=== PATIENT | male | born 1970 | race Caucasian/White ===

== ENCOUNTER 2021-09-26 11:51 | Emergency (ER) | payer OTHER, SELFPAY ==
[2021-09-26 12:04] VITALS: BP 138/98; PULSE 94; RESP 14; TEMP 37.1; O2SAT 99
--- NOTE | 2021-09-26 13:01 | ED.GENADULT ---
HPI - General Adult General Chief complaint: Upper Respiratory Infection Stated complaint: cough Source: patient Mode of arrival: ambulatory Limitations: no limitations History of Present Illness HPI narrative: Patient presents for evaluation of sick symptoms for the last 2 days. He states that he generally was not feeling well 2 days ago. Yesterday he developed chills, headache, body aches, nonproductive cough. He continues to have a cough but states other symptoms have resolved. He denies any fever, shortness of breath, chest pain, nausea, vomiting, diarrhea. He states that his coworker contacted him and told him that he tested positive for COVID. Patient does not smoke tobacco. He has had COVID in the past. She did not receive COVID vaccinations. No additional complaints or concerns Related Data Home Medications Medication Instructions Recorded Confirmed albuterol sulfate 90 mcg/actuation 2 inh inhalation Q4H PRN sob 09/26/21 09/26/21 aerosol inhaler losartan 100 mg tablet 1 tablet PO DAILY 09/26/21 09/26/21 Allergies Allergy/AdvReac Type Severity Reaction Status Date / Time acetaminophen Allergy Severe passing out Verified 09/26/21 12:02 hydrocodone Allergy Severe passing out Verified 09/26/21 12:02 oxycodone Allergy Severe passing out Verified 09/26/21 12:02 Review of Systems Review of Systems: CONSTITUTIONAL: Reports recent chills, now resolved. Denies fever or sweats. EYES: Denies visual changes, redness, or discharge. ENT: Denies rhinorrhea, congestion, sore throat, or otalgia. CARDIOVASCULAR: Denies chest pain, palpitations, or edema. RESPIRATORY: Reports cough. Denies dyspnea. GASTROINTESTINAL: Denies abdominal pain, nausea, vomiting, or diarrhea. GENITOURINARY: Denies dysuria or hematuria. SKIN: Denies rash or itching. MUSCULOSKELETAL: Reports recent body aches, now resolved. NEUROLOGIC: Reports recent headache, now resolved. Denies umbness, dizziness, or weakness. PSYCHIATRIC: Denies anxiety or depression. [facility] Past Medical History Medical History Bronchitis Surgical History Surgical History History of shoulder surgery Family History Family History Mother Cancer Social History Social History Smoking status: Never smoker Alcohol intake: current Alcohol use details: social Substance use: never Additional living arrangements comments: lives with girlfriend Gender identity (if verbalized by the patient): Male Sexual Orientation (if Verbalized by the Patient): Straight or Heterosexual Spiritual care concerns: No Exam Narrative: GENERAL: Well-appearing, well-nourished, and in no acute distress. HEAD: Normocephalic, atraumatic. EYES: PERRLA and EOMI. ENT: Nares clear, no rhinorrhea or epistaxis. Mucous membranes moist. Oropharynx without tonsillar hypertrophy exudate or other lesions. Bilateral TMs pearly aslter nonbulging NECK: Supple. No adenopathy or masses. No carotid bruits or JVD CHEST: Clear to auscultation. Cough present on exam. No respiratory distress. No wheezes rales or rhonchi HEART: Regular rate and rhythm. No murmur heard. Normal peripheral pulses. ABDOMEN: Soft, nontender, nondistended, normal active bowel sounds. EXTREMITIES: Normal range of motion. No edema. SKIN: Warm, dry, no rash. NEURO: No focal deficits. Alert and oriented x3. PSYCH: Normal mood and affect. Course Course Emergency Course: This is a 50-year-old male who present with complaints of sick symptoms after recent COVID exposure. COVID was positive. Will discharge with Paxlovid. Follow-up outpatient for further evaluation and treatment. Go to the ER for declining condition. Patient agreed with plan of care. Level of Care: Express Care V
== END 2021-09-26 13:05 | disposition home or self-care (01) ==
PROVIDERS: Emergency Provider Nurse Practitioner; PCP Internal Medicine
DX: U07.1 COVID-19 (principal)
CPT/HCPCS: 87426; 99213; C9803; G0463

== ENCOUNTER 2024-02-03 12:12 | Emergency (ER) | payer OTHER, SELFPAY ==
[2024-02-03 12:18] VITALS: BP 124/88; PULSE 98; RESP 18; TEMP 36.9; O2SAT 100
--- NOTE | 2024-02-03 12:26 | ED_ITS ---
HPI - General Adult General Chief complaint: Upper Respiratory Infection Stated complaint: poss bronchitis History of Present Illness HPI narrative: Patient presents requesting a refill on his inhaler. Patient states he has appointment to see his PCP in 2 weeks but has run out of his inhalers. No shortness of breath no chest pain. Patient states he does have a productive cough at times denies any fever body aches. Related Data Home Medications Medication Instructions Recorded Confirmed albuterol sulfate 90 mcg/actuation 2 inh inhalation Q4H PRN sob 09/26/21 09/26/21 aerosol inhaler losartan 100 mg tablet 1 tablet PO DAILY 09/26/21 09/26/21 Allergies Allergy/AdvReac Type Severity Reaction Status Date / Time acetaminophen Allergy Severe passing out Verified 09/26/21 12:02 hydrocodone Allergy Severe passing out Verified 09/26/21 12:02 oxycodone Allergy Severe passing out Verified 09/26/21 12:02 Review of Systems Review of Systems: CONSTITUTIONAL: Denies chills, or sweats. Reports fever and generalized body aches EYES: Denies visual changes, redness, or discharge. ENT: Denies otalgia. Reports nasal congestion runny nose and sore throat CARDIOVASCULAR: Denies chest pain, palpitations, or edema. RESPIRATORY: Denies dyspnea. Reports occasional cough GASTROINTESTINAL: Denies abdominal pain, nausea, vomiting, or diarrhea. GENITOURINARY: Denies dysuria or hematuria. SKIN: Denies rash or itching. MUSCULOSKELETAL: Denies back pain, joint pain, or myalgia. Reports generalized body aches NEUROLOGIC: Denies headache, numbness, or weakness. PSYCHIATRIC: Denies anxiety or depression. [facility] Past Medical History Medical History (Updated 02/03/24 @ 12:28 by LOKESH Wagner) Bronchitis Surgical History Surgical History History of shoulder surgery Family History Family History Mother Cancer Social History Social History Smoking status: Never smoker Alcohol intake: current Alcohol use details: social Substance use: never Additional living arrangements comments: lives with girlfriend Gender identity (if verbalized by the patient): Male Sexual Orientation (if Verbalized by the Patient): Straight or Heterosexual Spiritual care concerns: No Exam Narrative: The patient is a well-developed, well-nourished in no acute distress. SKIN: Skin is warm and dry without erythema, swelling or exudate. There is good turgor. No tenting. HEAD: Atraumatic. Normocephalic. No temporal or scalp tenderness. EYES: Moist and bright. Sclera and conjunctivae normal. No discharge. PERRLA. Extraocular motions intact. Gross visual acuity intact. EARS: Pinna is normal shape and contour. Clear external auditory canals. TM pearly guzman with good cone of light, no erythema or suppuration. Bilateral cerumen noted no gross hearing deficit. NOSE: pink, moist mucosa with good air movement. Clear rhinorrhea without nasal flaring. Septum midline. Mouth: moist mucous membranes. THROAT; mild erythema noted to posterior oropharynx with moderate postnasal drainage. Without exudate or ulceration.. Uvula midline. Normal movement of soft palate. NECK: Supple and nontender with full range of motion without discomfort. No meningeal signs. LUNGS: Equal and bilateral breath sounds without wheezes, rales or rhonchi. CHEST: The chest wall is without retractions or use of accessory muscles. HEART: Has a regular rate and rhythm without murmur, gallops, click or rub. ABDOMEN: Soft, nontender with positive active bowel sounds. No rebound tenderness. EXTREMITIES: Without cyanosis, clubbing or edema. Equal 2+ distal pulses and 2 second capillary refill noted. NEUROLOGIC: alert, active, . The patient moves all extremities with normal muscle strength. Normal muscle tone is noted. Normal coordination is noted. NO focal neurological findings noted. Course Course Level of Care: Express Care Visit Vital Signs Vital signs: Vital Signs Temperature 36.9 C 02/03/24 12:18 Pulse Rate 98 02/03/24 12:18 Respiratory Rate 18 02/03/24 12:18 Blood Pressure 124/88 02/03/24 12:18 Pulse Oximetry 100 02/03/24 12:18 Oxygen Delivery Room Air 02/03/24 12:18 Temperature 36.9 C 02/03/24 12:18 Pulse Rate 98 02/03/24 12:18 Respiratory Rate 18 02/03/24 12:18 Blood Pressure 124/88 02/03/24 12:18 Pulse Oximetry 100 02/03/24 12:18 Oxygen Delivery Room Air 02/03/24 12:18 Medical Decision Making Vital Signs Vital Signs: Vital Signs Temperature 36.9 C 02/03/24 12:18 Pulse Rate 98 02/03/24 12:18 Respiratory Rate 18 02/03/24 12:18 Blood Pressure 124/88 02/03/24 12:18 Pulse Oximetry 100 02/03/24 12:18 Oxygen Delivery Room Air 02/03/24 12:18 Temperature 36.9 C 02/03/24 12:18 Pulse Rate 98 02/03/24 12:18 Respiratory Rate 18 02/03/24 12:18 Blood Pressure 124/88 02/03/24 12:18 Pulse Oximetry 100 02/03/24 12:18 Oxygen Delivery Room Air 02/03/24 12:18 Discharge Plan Discharge Clinical Impression: Medication refill Patient Disposition: Home, Self-Care Condition: Stable Instructions: How to Use a Metered-Dose Inhaler (DC) Additional Instructions: Keep appointment with PCP as planned Use inhalers as prescribed rinse mouth after each use of inhaler. If any new or worsening symptoms please go to ER immediately further evaluation treatment Prescriptions: New albuterol sulfate 90 mcg/actuation HFA aerosol inhaler 2 puff inhalation QID PRN (Reason: shortness of breath or wheezing) Qty: 1 1RF budesonide-formoterol [Symbicort] 80-4.5 mcg/actuation HFA aerosol inhaler 2 puff inhalation Q12H 30 Days Qty: 10.2 0RF No Action albuterol sulfate 90 mcg/actuation HFA aerosol inhaler 2 inh INHALATION Q4H PRN (Reason: sob) losartan 100 mg tablet 1 tablet PO DAILY Follow-up/Referrals: Aria,Clint Hawley MD [Primary Care Provider] -
== END 2024-02-03 12:31 | disposition home or self-care (01) ==
PROVIDERS: Emergency Provider Nurse Practitioner Family; PCP Internal Medicine
DX: Z76.0 Encounter for issue of repeat prescription (principal)
CPT/HCPCS: 99211; G0463